=== PATIENT | female | born 1985 | race Caucasian/White ===

== ENCOUNTER 2021-04-24 12:18 | Emergency (ER) | payer OTHER ==
[~2021-04-24 12:18] MED LIST: IBUPROFEN800 MG PO; MEDROL 4MG DOSEP4 MG PO; TRAMADOL HCL50 MG PO; VENTOLIN HFA IN18 GM INH; VISTARIL25 MG PO; XANAX0.5 MG PO; ZOFRAN4 MG SL
[2021-04-24] MEDS ORDERED: NYSTATIN SUSP1 ML/ML SSP (14:25)
== END 2021-04-24 14:41 | disposition home or self-care (01) ==
LOC: FER 12:18
DX: U07.1 COVID-19 (principal); B37.9 Candidiasis, unspecified; K59.00 Constipation, unspecified; Z88.8 Allergy status to other drugs, medicaments and biological substances
CPT/HCPCS: 74022; 87880

== ENCOUNTER → 2021-07-02 | Day surgery (SDC) | payer OTHER ==
[~2021-07-02] VITALS: Ht 149.9 cm; Wt 65.8 kg
[~2021-07-02] MED LIST changes: +ABILIFY5 MG IM; +NEURONTIN300 MG PO; +NYSTATIN SUSP1 ML/ML SSP
[2021-07-02 11:14] LABS: HCG (URINE) SCREEN NEGATIVE (NEGATIVE)
== END | disposition home or self-care (01) ==
LOC: FAS 10:31
PROVIDERS: Anesthesiology
DX: K22.2 Esophageal obstruction (principal); K29.70 Gastritis, unspecified, without bleeding; B96.81 Helicobacter pylori [H. pylori] as the cause of diseases classified elsewhere; K21.9 Gastro-esophageal reflux disease without esophagitis; J44.9 Chronic obstructive pulmonary disease, unspecified; F41.9 Anxiety disorder, unspecified; F17.210 Nicotine dependence, cigarettes, uncomplicated; Z72.89 Other problems related to lifestyle; Z88.8 Allergy status to other drugs, medicaments and biological substances; Z79.899 Other long term (current) drug therapy
CPT/HCPCS: 84703; J2250; J2704; J7120

== ENCOUNTER → 2021-11-28 | Day surgery (SDC) | payer OTHER ==
[~2021-11-28] VITALS: Ht 149.9 cm; Wt 65.8 kg
[2021-11-28 06:30] LABS: HCG (URINE) SCREEN NEGATIVE (NEGATIVE)
== END | disposition home or self-care (01) ==
LOC: FAS 11-07 07:00
PROVIDERS: Anesthesiology
DX: K22.2 Esophageal obstruction (principal); K29.50 Unspecified chronic gastritis without bleeding; B96.81 Helicobacter pylori [H. pylori] as the cause of diseases classified elsewhere; J44.9 Chronic obstructive pulmonary disease, unspecified; Z88.8 Allergy status to other drugs, medicaments and biological substances; Z72.0 Tobacco use
CPT/HCPCS: 84703; C1726; J2250; J2704; J7120; U0002